=== PATIENT | male | born 1980 | race Caucasian/White ===

== ENCOUNTER 2019-07-27 17:35 | Emergency (ER) | payer BC ==
--- OUTSIDE RECORDS SUMMARY | 2019-07-27 17:41 | XMS REPORT | Continuity of Care Document ---
:1980 External Reference #:[id number] Author Name Shavonne Malhotra NP (transmitted by agent of provider Sonja Tello) Address [address], [address] [place] [address] Care Team Providers Name Role Phone Henry Eisenberg MD - Internal Care Team Information Inspector Set Up And Lay Out Medicine Problems Description No Information Available Social History Type Date Description Comments Sex Unknown ETOH Use Occasionally consumes alcohol Tobacco Use Start: Unknown Patient has never smoked Smoking Status Reviewed: 06/24/19 Patient has never smoked Exercise Type/Frequency Exercises regularly Allergies, Adverse Reactions, Alerts Active Allergies Reaction Severity Comments Date Sulfa Antibiotics 08/02/2016 Penicillin 08/02/2016 Augmentin Severe 06/01/2019 Medications Active Medications SIG Qnty Indications Ordering Provider Date Claritin Unknown Atorvastatin Calcium Irma Mcadams MD 10mg Tablets Nasacort Allergy 24HR 2 puffs each nare Unknown every in the 55mcg/Act Aerosol morning Fish Oil Concentrate 2 by mouth every Unknown day 300mg Capsules Multi For Him 1 by mouth every Unknown Capsules day Immunizations Description No Information Available Vital Signs Date Vital Result Comment 06/24/2019 7:52am Height 75.5 inches 6'3.50" Weight 344.00 lb Heart Rate 66 /min 126 BP Systolic 126 mmHg BP Diastolic 88 mmHg O2 % BldC Oximetry 98 % BMI (Body Mass Index) 42.4 kg/m2 06/01/2019 8:18am Height 75.5 inches 6'3.50" Weight 344.00 lb Heart Rate 78 /min BP Systolic Sitting 120 mmHg lg BP Diastolic Sitting 80 mmHg lg O2 % BldC Oximetry 96 % BMI (Body Mass Index) 42.4 kg/m2 Neck Circumference in inches 18 Results Description No Information Available Procedures Date Code Description Status 06/02/2019 69295 Sleep Study Unattended,HRT Rate,Oxygen Sat,Resp Completed Effort/Airflow Medical Devices Description No Information Available Encounters Type Date Location Provider Dx Diagnosis Office Visit 06/01/2019 [facility] Mia Fraire MD R06.83 Snoring 8:30a [facility] R53.83 Other fatigue Assessments Date Code Description Provider 06/24/2019 G47.33 Obstructive sleep apnea (adult) (pediatric) Shavonne Malhotra NP 06/24/2019 R53.83 Other fatigue Shavonne Malhotra NP 06/24/2019 E66.9 Obesity, unspecified Shavonne Malhotra NP 06/02/2019 G47.33 Obstructive sleep apnea (adult) (pediatric) Mia Fraire MD 06/01/2019 R06.83 Snoring Mia Fraire MD 06/01/2019 R53.83 Other fatigue Mia Fraire MD Plan of Treatment Future Appointment(s):08/12/2019 8:00 am - Shavonne Malhotra NP at [facility]06/24/2019 - Shavonne Malhotra NPG47.33 Obstructive sleep apnea (adult) (pediatric)Follow up:6 weeksRecommendations:You are being set up with CPAP for your sleep apnea through [facility] . 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 If you have difficulty with your equipment, or need to replace your mask or hoses, please contact your homecare agency. If you have any further questions, please call the [facility] at [phone] Ifyou have any sleepiness while driving you MUST avoid operating a vehicle or machinery. If you feel tired while driving gut puller and take a nap or switch drivers. If you know you are sleepy and need togo somewhere, arrange for a ride or use public transportation. It is very important to not risk yoursafety or the safety of others.R53.83 Other pykedrvT66.9 Obesity, unspecified Functional Status Description No Information Available Mental Status Description No Information Available Referrals Description No Information Available
--- OUTSIDE RECORDS SUMMARY | 2019-07-27 17:41 | XMS REPORT | Continuity of Care Document ---
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 Medicine Problems Description No Information Available Social History Type Date Description Comments Sex Unknown ETOH Use Occasionally consumes alcohol Tobacco Use Start: Unknown Patient has never smoked Smoking Status Reviewed: 06/01/19 Patient has never smoked Exercise Type/Frequency Exercises [...] Available Vital Signs Date Vital Result Comment 06/01/2019 8:18am Height 75.5 inches 6'3.50" Weight 344.00 lb Heart Rate 78 /min BP Systolic Sitting 120 mmHg lg BP Diastolic Sitting 80 mmHg lg O2 % BldC Oximetry 96 % BMI (Body Mass Index) 42.4 kg/m2 Neck Circumference in inches 18 08/12/2017 2:02pm Height 75.5 inches 6'3.50" BP Systolic 122 mmHg BP Diastolic 72 mmHg Respiratory Rate 20 /min Pain Level 4 Results Description No Information Available Procedures Description No Information Available Medical Devices Description No Information Available Encounters Description No Information Available Assessments Date Code Description Provider 06/01/2019 R06.83 Snoring Mia Fraire MD Plan of Treatment Future Appointment(s):06/24/2019 8:00 am - Shavonne Malhotra NP at [facility]06/01/2019 - Mia Fraire, MDR06.83 SnoringNew Orders:Home Sleep Testing, Scheduled: 06/01/19Follow up:1 week Functional Status Description No Information Available Mental Status Description No Information Available Referrals Description No Information Available
[2019-07-27 18:29] VITALS: BP 133/96
--- NOTE | 2019-07-27 19:07 | UC ---
FLU HPI - HPI Summary HPI Summary: 38-year-old male presents with complaints of onset of general malaise, fatigue, headache, body aches, difficulty concentrating, nasal congestion 2 days ago. No measured fever but has complains of intermittent chills. He also noted some abdominal cramping on first day of symptoms since resolved. States he noted his blood pressure was elevated at 160/100 at the onset of symptoms. Has history of high blood pressure but is currently not under treatment. Denies visual disturbances, facial droop, weakness, numbness, or tingling of the arms or legs, ear pain, sore throat, cough, chest pain, shortness of breath, nausea, vomiting, or diarrhea. - History of Current Complaint Chief Complaint: UCGeneralIllness Stated Complaint: HIGH BP Time Seen by Provider: 07/27/19 18:50 Hx Obtained From: Patient Pain Intensity: 0 - Allergy/Home Medications Allergies/Adverse Reactions: Allergies Allergy/AdvReac Type Severity Reaction Status Date / Time amoxicillin Allergy Rash Verified 07/27/19 18:29 clavulanic acid Allergy Rash Verified 07/27/19 18:29 Sulfa (Sulfonamide Allergy Rash Verified 07/27/19 18:29 Antibiotics) Home Medications: Home Medications Ibuprofen 600 mg PO DAILY WITH MEAL 07/27/19 [History Confirmed 07/27/19] PMH/Surg Hx/FS Hx/Imm Hx Endocrine History: Dyslipidemia Cardiovascular History: Hypertension - Surgical History Surgical History: Yes Surgery Procedure, Year, and Place: RT ACL REPAIR 15 YRS AGO, KIDNEY STONE REMOVAL 5 YRS AGO - Family History Known Family History: Positive: Non-Contributory - Social History Occupation: Employed Full-time Lives: With Family Alcohol Use: Weekly Substance Use Type: None Smoking Status (MU): Never Smoked Tobacco Review of Systems All Other Systems Reviewed And Are Negative: Yes Constitutional: Positive: Chills, Fatigue Skin: Negative: Rash Eyes: Negative: Blurred Vision, Diplopia, Drainage, Eye Redness, Photophobia ENT: Positive: Nasal Discharge, Sinus Congestion. Negative: Sore Throat, Ear Ache, Sinus Pain/Tenderness Respiratory: Negative: Shortness Of Breath, Cough Cardiovascular: Negative: Palpitations, Chest Pain Gastrointestinal: Negative: Abdominal Pain, Vomiting, Diarrhea, Nausea Genitourinary: Positive: Negative Musculoskeletal: Positive: Myalgia Neurological/Mental Status: Positive: Headache Is Patient Immunocompromised?: No Physical Exam - Summary Physical Exam Summary: GENERAL APPEARANCE: Alert and cooperative obese male who appears to be in no acute distress. EYES: Conjunctiva clear. No drainage. PERRL, EOM intact. Vision is grossly intact. EARS: External auditory canals and tympanic membranes clear, hearing grossly intact. NOSE: Mild nasal congestion. No nasal discharge. THROAT: Pharynx normal. No tonsilar inflammation, swelling, exudate, or lesions. Uvula midline. NECK: Neck supple, non-tender without lymphadenopathy. CARDIAC: Normal S1 and S2. No S3, S4 or murmurs. Rhythm is regular. There is no peripheral edema, cyanosis or pallor. Extremities are warm and well perfused. Capillary refill is less than 2 seconds. Peripheral pulses intact. LUNGS: Clear to auscultation without rales, rhonchi, wheezing or diminished breath sounds. ABDOMEN: Positive bowel sounds. Soft, nondistended, nontender. No guarding or rebound. No masses or hepatosplenomegally. MUSKULOSKELETAL: ROM intact to all extremities. No joint erythema or tenderness. Normal muscular development. Normal gait. NEUROLOGICAL: CN II-XII intact. Strength and sensation symmetric and intact throughout. Cerebellar testing normal. SKIN: Skin normal color, texture and turgor with no lesions or eruptions. Triage Information Reviewed: Yes Vital Signs: Initial Vital Signs Temp 98.3 F 07/27/19 18:25 Pulse 75 07/27/19 18:25 Resp 18 07/27/19 18:25 BP 133/96 07/27/19 18: Pulse Ox 100 07/27/19 18:25 Vital Signs Reviewed: Yes Flu Course/Dx - Course Course Of Treatment: 38-year-old male presents with complaints of onset of general malaise, fatigue, headache, body aches, difficulty concentrating, nasal congestion 2 days ago. No measured fever but has complains of intermittent chills. He also noted some abdominal cramping on first day of symptoms since resolved. States he noted his blood pressure was elevated at 160/100 at the onset of symptoms. Has history of high blood pressure but is currently not under treatment. Denies visual disturbances, facial droop, weakness, numbness, or tingling of the arms or legs, ear pain, sore throat, cough, chest pain, shortness of breath, nausea, vomiting, or diarrhea. Afebrile. Mildly hypertensive otherwise vital signs stable. Patient was neurologically intact and had mild nasal congestion, normal TMs, normal pharynx, no cervical lymphadenopathy, clear bilateral breath sounds, soft nontender abdomen, and otherwise unremarkable exam. Rapid influenza was negative. Reviewed results with the patient. We discussed that his symptoms were likely from a viral syndrome and that the elevated blood pressure was unrelated to the symptoms however have recommended that he follow- up with his primary care provider within 7 days for recheck of his blood pressure as well as his symptoms. Anticipatory guidance and warning symptoms requiring immediate evaluation in the emergency room were reviewed with the patient. Verbalizes understanding and agrees with plan of care. - Differential Dx/Diagnosis Differential Diagnosis/HQI/PQRI: Influenza, Upper Respiratory Infection, Other - Elevated blood pressure Provider Diagnosis: Viral syndrome, Elevated blood pressure reading Discharge ED - Sign-Out/Discharge Documenting (check all that apply): Patient Departure All imaging exams completed and their final reports reviewed: No Studies - Discharge Plan Condition: Stable Disposition: HOME Patient Education Materials: Viral Syndrome (ED) Referrals: Irma Eisenberg MD [Primary Care Provider] - 7 Days Additional Instructions: The rapid flu test performed in the clinic today was negative. I suspect that your symptoms are from and it is viral infection and that they were related to your elevated blood pressure reading. Drink plenty of fluids to avoid dehydration. Use fluticasone (Flonase) nasal spray 2 sprays each nostril once daily to help with any nasal congestion Take over the counter acetaminophen (Tylenol) or ibuprofen (Advil, Motrin) according to directions as needed for pain or fever. Follow up with your primary care provider within 7 days for a recheck of your blood pressure and symptoms.. Seek immediate medical attention in the emergency room if you have fever greater than 100.5 F despite taking acetaminophen or ibuprofen, have chest pain , difficulty breathing, severe headache, changes in vision, slurred or difficulty speaking, confusion, loss of consciousness, develop weakness, numbness, or tingling in your arms or legs, or have any worsening of symptoms. - Billing Disposition and Condition Condition: STABLE Disposition: Home - Attestation Statements Provider Attestation: I was available for consult. This patient was seen by the CHELSEA. The patient was not presented to, seen by, or examined by me. -Hailey
[2019-07-27 19:23] LABS: Influenza A Molecular Negative (Negative); Influenza B Molecular Negative (Negative)
== END 2019-07-27 19:40 | disposition home or self-care (01) ==
LOC: UCEAST 17:35
DX: B34.9 Viral infection, unspecified (principal); I10 Essential (primary) hypertension; R53.81 Other malaise; R51 Headache; R09.81 Nasal congestion; M79.10 Myalgia, unspecified site; Z88.0 Allergy status to penicillin; Z88.2 Allergy status to sulfonamides
CPT/HCPCS: 99211; G0463